=== PATIENT | male | born 1970 | race Caucasian/White ===

== ENCOUNTER 2017-01-17 05:23 | Emergency (ER) ==
[2017-01-17] MEDS ORDERED: NS 1,000 ML IV ONE ×3 (05:36→10:23)
--- NOTE | 2017-01-17 05:42 | PROVIDER DOCUMENTATION ---
HPI-Chest Pain - General Source: patient - History of Present Illness-CP Location: reports: central Chest Pain Radiation: reports: no radiation Quality of Pain: reports: aching, sharp Severity in ED: mild Onset/Duration: unsure Timing: still present Context/Activities at Onset: reports: none Modifying Factors: improves with: nothing Associated Symptoms: reports: abdominal pain, heartburn, nausea, weakness <Rodo Mccormick - Last Filed: 01/17/17 05:42> <Marcella Adair - Last Filed: 01/17/17 12:10> <Cristopher Rizo - Last Filed: 01/17/17 12:14> - General Chief Complaint: N/V/D Stated Complaint: CHEST PAIN Time Seen by Provider: 01/17/17 05:36 Allergies/Adverse Reactions: Patient Allergies Allergy/AdvReac Type Severity Reaction Status Date / Time No Known Allergies Allergy Verified 01/17/17 05:34 Home Medications: Home Medication List Medication Instructions Recorded Confirmed Last Taken Type Diphenoxylate/Atropine [Lomotil] 1 each PO 4XDAY PRN PRN #20 tablet 01/17/17 Unknown Rx Promethazine [Phenergan] 1 - 2 tab PO Q6H PRN PRN #18 tablet 01/17/17 Unknown Rx Review of Systems - Adult - REVIEW OF SYSTEMS - ADULT Constitutional: reports: no symptoms reported Eyes: reports: no symptoms reported Ears, Nose, Mouth & Throat: reports: no symptoms reported Cardiovascular: reports: no symptoms reported Respiratory: reports: no symptoms reported Gastrointestinal: reports: no symptoms reported Genitourinary: reports: no symptoms reported Musculoskeletal: reports: no symptoms reported Integumentary: reports: no symptoms reported Neurological: reports: no symptoms reported Psychiatric: reports: no symptoms reported Endocrine: reports: no symptoms reported Hematologic/Lymphatic: reports: no symptoms reported Allergic/Immunologic: reports: no symptoms reported All Other Systems: Reviewed and Negative <Rodo Mccormick - Last Filed: 01/17/17 05:42> Past History - Adult - PAST MEDICAL HISTORY-ADULT Review of Records: reports: Old Records Reviewed, Nursing Assessment Review, Medications Reviewed, Social history reviewed & non-contributory. 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) Other Conditions: reports: denies history - PRIOR SURGERIES/PROCEDURES Surgical/Procedure History: reports: orthopedic (extremity) (acl) - IMMUNIZATION STATUS Childhood Immunizations: See Nurse Assessment Flu Vaccine: See Nurse Assessment - FAMILY HISTORY Family History: reviewed, not pertinent <Rodo Mccormick - Last Filed: 01/17/17 05:42> Physical Exam-General - PHYSICAL EXAM-ADULT Initial Vital Signs Reviewed: Yes - CONSTITUTIONAL General Appearance: alert - EYES Eyes: pink conjunctivae - HEAD, EARS, NOSE, MOUTH & THROAT HENMT: normocephalic/atraumatic - RESPIRATORY Respiratory: normal breath sounds - CARDIOVASCULAR Cardiovascular: normal peripheral pulses <Rodo Mccormick - Last Filed: 01/17/17 05:42> Progress <Rodo Mccormick - Last Filed: 01/17/17 05:42> <Marcella Adair - Last Filed: 01/17/17 12:10> <Cristopher Rizo - Last Filed: 01/17/17 12:14> - PLAN OF CARE/RESULTS Progress/Plan/Lab Results: Laboratory Tests 01/17/17 01/17/17 01/17/17 05:25 05:25 05:25 WBC 10.35 RBC 5.72 Hgb 19.3 H Hct 54.3 H MCV 94.9 MCH 33.7 H MCHC 35.5 RDW Std Deviation 12.2 Plt Count 205 MPV 9.8 Immature Gran % (Auto) 0.3 Neut % (Auto) 72.8 Lymph % (Auto) 15.7 L [place] % (Auto) 10.3 H Eos % (Auto) 0.7 Baso % (Auto) 0.2 Immature Gran # (Auto) 0.03 Neut # (Auto) 7.54 H Lymph # (Auto) 1.62 [place] # (Auto) 1.07 H Eos # (Auto) 0.07 Baso # (Auto) 0.02 Sodium 135 L Potassium 3.3 L Chloride 94 L Carbon Dioxide 23 L Anion Gap 18 BUN 28 H Creatinine 1.1 Estimated GFR/1.73 m2 > 60 BUN/Creatinine Ratio 25 Glucose 184 H Calculated Osmolality 280 Calcium 12.1 H* Total Bilirubin 1.60 H AST 43 H ALT 114 H Alkaline Phosphatase 74 Creatine Kinase 115 Troponin T < 0.010 Total Protein 8.0 Albumin 5.0 Globulin 3.0 Albumin/Globulin Ratio 2.0 Amylase 51 Lipase 37 01/17/17 01/17/17 11:31 11:31 WBC 6.74 RBC 4.84 Hgb 16.5 Hct 47.1 MCV 97.3 MCH 34.1 H MCHC 35.0 RDW Std Deviation 12.2 Plt Count 140 D MPV 9.9 Immature Gran % (Auto) 0.1 Neut % (Auto) 77.9 H Lymph % (Auto) 11.9 L [place] % (Auto) 9.6 H Eos % (Auto) 0.4 Baso % (Auto) 0.1 Immature Gran # (Auto) 0.01 Neut # (Auto) 5.24 Lymph # (Auto) 0.80 L [place] # (Auto) 0.65 H Eos # (Auto) 0.03 Baso # (Auto) 0.01 Sodium Potassium Chloride Carbon Dioxide Anion Gap BUN Creatinine Estimated GFR/1.73 m2 BUN/Creatinine Ratio Glucose Calculated Osmolality Calcium 10.0 D Total Bilirubin AST ALT Alkaline Phosphatase Creatine Kinase Troponin T Total Protein Albumin Globulin Albumin/Globulin Ratio Amylase Lipase Orders Category Date Time Status Cardiac Monitoring DIRECTED Care 01/17/17 05:36 Active Oxygen Therapy- ED Nursing DIRECTED Care 01/17/17 05:36 Active Saline Loc NOW Care 01/17/17 05:36 Active AMYLASE [CHEM] Stat Lab 01/17/17 05:25 Completed CALCIUM [CHEM] Stat Lab 01/17/17 11:31 Completed CBC WITH DIFF [HEME] Stat Lab 01/17/17 05:25 Completed CBC WITH DIFF [HEME] Stat Lab 01/17/17 11:31 Completed CK PROFILE [SP CHEM] Stat Lab 01/17/17 05:25 Completed COMPREHENSIVE METABOLIC PANEL [CHEM] Stat Lab 01/17/17 05:25 Completed LIPASE [CHEM] Stat Lab 01/17/17 05:25 Completed TROPONIN T Stat Lab 01/17/17 05:25 Completed 0.9% Sodium Chloride Inj [Ns] 1,000 ml Med 01/17/17 10:23 Discontinued .ROUTE As Directed 0.9% Sodium Chloride Inj [Ns] 1,000 ml Med 01/17/17 05:36 Discontinued IV 999 mls/hr 0.9% Sodium Chloride Inj [Ns] 1,000 ml Med 01/17/17 08:50 Discontinued IV 999 mls/hr 0.9% Sodium Chloride Inj [Ns] 1,000 ml Med 01/17/17 10:23 Discontinued IV 999 mls/hr Amlodipine [Norvasc] Med 01/17/17 11:05 Discontinued 5 mg .ROUTE .STK-MED ONE Amlodipine [Norvasc] Med 01/17/17 11:05 Discontinued 5 mg PO NOW ONE Clonidine [Catapres] Med 01/17/17 11:00 Discontinued 0.2 mg PO NOW ONE Promethazine [Phenergan] Med 01/17/17 09:22 Discontinued 12.5 mg IV NOW ONE Promethazine [Phenergan] Med 01/17/17 09:22 Discontinued 25 mg .ROUTE .STK-MED ONE Sodium Chloride 0.9% Med 01/17/17 09:22 Discontinued 10 ml INJ NOW ONE Sodium Chloride 0.9% 10 ml Med 01/17/17 09:22 Discontinued .ROUTE As Directed EKG [EKG] Stat Ther 01/17/17 05:36 Draft Vital Signs - 24 hr 01/17/17 01/17/17 01/17/17 05:25 07:00 07:15 Temperature 97 F L Pulse Rate 115 H 86 82 Respiratory 18 20 17 Rate Blood Pressure 174/126 192/124 197/125 O2 Sat by Pulse 97 97 98 Oximetry 01/17/17 01/17/17 01/17/17 07:30 07:45 08:00 Temperature Pulse Rate 91 H 87 91 H Respiratory 13 10 L 20 Rate Blood Pressure 199/134 179/129 202/128 O2 Sat by Pulse 98 98 97 Oximetry 01/17/17 01/17/17 01/17/17 08:15 08:30 08:45 Temperature Pulse Rate 95 H 83 85 Respiratory 17 19 17 Rate Blood Pressure 177/125 174/107 210/134 O2 Sat by Pulse 98 99 98 Oximetry 01/17/17 01/17/17 01/17/17 09:00 09:15 09:30 Temperature Pulse Rate 92 H 88 74 Respiratory 23 15 20 Rate Blood Pressure 195/126 214/129 176/99 O2 Sat by Pulse 97 99 97 Oximetry 01/17/17 01/17/17 01/17/17 09:45 10:00 10:15 Temperature Pulse Rate 75 71 92 H Respiratory 15 16 23 Rate Blood Pressure 175/107 173/109 186/125 O2 Sat by Pulse 98 98 97 Oximetry 01/17/17 01/17/17 01/17/17 10:30 10:45 11:00 Temperature Pulse Rate 92 H 68 87 Respiratory 19 19 Rate Blood Pressure 175/119 203/128 196/124 O2 Sat by Pulse 96 98 96 Oximetry (Marcella Adair) Departure <Rodo Mccormick - Last Filed: 01/17/17 05:42> <Marcella Adair - Last Filed: 01/17/17 12:10> - Departure Time of Disposition Order: 12:11 Certified Medical Emergency: Emergent <Cristopher Rizo - Last Filed: 01/17/17 12:14> - Departure DIAGNOSIS: Dehydration, Gastroenteritis, Hypercalcemia Disposition: HOME 01 Condition: Stable Additional Instructions: ED Follow Up Instructions: You have been treated by a care provider in the Emergency Department. These instructions are being provided to you so you can have an understanding of how to care for yourself upon discharge. Upon discharge from the Emergency Department, you are responsible for making arrangements for follow-up care by a physician of your choice. Take all prescribed medications as directed. Return to the Emergency Department immediately for any new or worsening symptoms. You may call the Physician Referral phone number at [phone] to obtain a list of Physicians who are taking new patients. Prescriptions: Diphenoxylate/Atropine [Lomotil] 1 each PO 4XDAY PRN PRN #20 tablet PRN Reason: Diarrhea Promethazine [Phenergan] 1 - 2 tab PO Q6H PRN PRN #18 tablet PRN Reason: Vomiting Attestation - Scribe Verification/Attestation Scribe:: Marcella Adair Acting as Scribe for:: Cristopher Rizo Scribe documention review:: This chart was documented by a scribe and accurately reflects the service the provider performed and the decisions made by the provider. <Marcella Adair - Last Filed: 01/17/17 12:10> Physician Attestation
[2017-01-17 05:43] LABS: MANUAL DIFF NEEDED? NO
--- NOTE | 2017-01-17 05:43 | EKG Report ---
Test Performed on : 01/17/2017 05:32:03 AM Test Reason : EPIGASTRIC PAIN Blood Pressure : / mmHG Vent. Rate : 104 BPM Atrial Rate : 104 BPM P-R Int : 180 ms QRS Dur : 084 ms QT Int : 336 ms P-R-T Axes : 067 061 060 degrees QTc Int : 441 ms Sinus tachycardia. Possible Left atrial enlargement Anteroseptal infarct (cited on or before 22-MAR-2016) Abnormal ECG When compared with ECG of 22-MAR-2016 20:57, Vent. rate has increased BY 37 BPM Unconfirmed Result
[2017-01-17 05:48] LABS: BASO% 0.2 % (0.0-0.8); EOS# 0.07 X1000 (0.0-0.7); EOS% 0.7 % (0.0-10.0); HEMATOCRIT 54.3 % (42.0-52.0); HEMOGLOBIN 19.3 g/dL (14.0-18.0); IMM GRAN# 0.03 X1000 (0.0-0.04); IMM GRAN% 0.3 % (0.0-0.5); LYMPH# 1.62 X1000 (1.2-3.4); LYMPH% 15.7 % (20.5-51.1); MCH 33.7 PG (27-31); MCHC 35.5 g/dL (33-37); MCV 94.9 FL (81-99); MONO# 1.07 X1000 (0.11-0.59); MONO% 10.3 % (1.7-9.3); MPV 9.8 FL (7.4-10.4); NEUT% 72.8 % (42.2-75.2); PLT 205 X1000 (130-400); RBC 5.72 XMIL (4.7-6.1)
[2017-01-17 06:08] LABS: AGAP 18; ALKALINE PHOSPHATASE 74 U/L (32-122); AMYLASE 51 U/L (20-200); BUN 28 mg/dL (8-22); CHLORIDE 94 mmol/L (98-107); CK PROFILE 115 U/L (24-204); COSMO 280; GOT 43 U/L (10-34); GPT 114 U/L (10-44); LIPASE 37 U/L (13-60); POTASSIUM 3.3 mmol/L (3.5-5.1); SODIUM 135 mmol/L (136-145); TCO2 23 mmol/L (25-35)
[2017-01-17 06:12] LABS: CALCIUM 12.1 mg/dL (8.8-10.2)
--- NOTE | 2017-01-17 08:58 | ED EKG INTERP ---
EKG Interpretation - EKG Time of EKG reading by physician:: 05:32 EKG Read and Signed by:: Cristopher Rizo EKG Interpretation (*Must complete 3 of following elements*): Abnormal Rate: 104 Rhythm: sinus tachycardia Comments: possible left atrial enlargement; anteroseptal infarct, age undetermined Attestation - Scribe Verification/Attestation Scribe:: Marcella Adair Acting as Scribe for:: Cristopher Rizo Scribe documention review:: This chart was documented by a scribe and accurately reflects the service the provider performed and the decisions made by the provider.
[2017-01-17] MEDS ORDERED: PHENERGAN ONE (09:22)
[2017-01-17] MEDS ORDERED: PHENERGAN IV ONE (09:22)
[2017-01-17] MEDS ORDERED: SODIUM CHLORIDE 0.9% 10 ML ONE (09:22)
[2017-01-17] MEDS ORDERED: SODIUM CHLORIDE 0.9% INJ ONE (09:22)
[2017-01-17] MEDS ORDERED: NS 1,000 ML ONE (10:23)
[2017-01-17] MEDS ORDERED: CATAPRES PO ONE (11:00)
[2017-01-17] MEDS ORDERED: NORVASC PO ONE (11:05)
[2017-01-17] MEDS ORDERED: NORVASC ONE (11:05)
[2017-01-17 11:42] LABS: MANUAL DIFF NEEDED? NO
[2017-01-17 11:45] LABS: BASO% 0.1 % (0.0-0.8); EOS# 0.03 X1000 (0.0-0.7); EOS% 0.4 % (0.0-10.0); HEMATOCRIT 47.1 % (42.0-52.0); HEMOGLOBIN 16.5 g/dL (14.0-18.0); IMM GRAN# 0.01 X1000 (0.0-0.04); IMM GRAN% 0.1 % (0.0-0.5); LYMPH% 11.9 % (20.5-51.1); MCH 34.1 PG (27-31); MCV 97.3 FL (81-99); MONO# 0.65 X1000 (0.11-0.59); MONO% 9.6 % (1.7-9.3); MPV 9.9 FL (7.4-10.4); NEUT% 77.9 % (42.2-75.2); PLT 140 X1000 (130-400); RBC 4.84 XMIL (4.7-6.1)
[2017-01-17 12:22] VITALS: BP 168/106
== END 2017-01-17 12:25 | disposition home or self-care (01) ==
LOC: P.ED 05:23
DX: K52.9 Noninfective gastroenteritis and colitis, unspecified (principal); E86.0 Dehydration; E83.52 Hypercalcemia; R11.2 Nausea with vomiting, unspecified; I10 Essential (primary) hypertension; E31.21 Multiple endocrine neoplasia [MEN] type I; R94.31 Abnormal electrocardiogram [ECG] [EKG]
CPT/HCPCS: 80053; 82150; 82310; 82550; 83690; 84484; 85025; 93005; 96361; 96374; J2550; J7030